=== PATIENT | male | born 1995 | race Caucasian/White ===

== ENCOUNTER 2018-03-27 00:36 | Emergency (ER) | payer SELFPAY ==
[~2018-03-27] VITALS: Ht 182.9 cm; Wt 90.9 kg
[~2018-03-27 00:36] MED LIST: EFFE150C PO; GABA300C5 PO; SERO200T PO
[2018-03-27 00:39] VITALS: BP 143/94; PULSE 95; RESP 18; O2SAT 97
[2018-03-27] MEDS ORDERED: SODIUM CHLOR 0.9% 1000 ML INJ 1,000 ML IV ONE (00:45)
[2018-03-27 01:14] LABS: AUTOMATED NEUTROPHIL # 3.6 TH/MM3 (1.8-7.7); BASOPHIL % 0.5 % (0.0-2.0); EOSINOPHIL # 0.2 TH/MM3 (0-0.4); EOSINOPHIL % 3.2 % (0.0-4.0); HEMOGLOBIN 15.4 GM/DL (13.0-17.0); LYMPHOCYTE # 2.3 TH/MM3 (1.0-4.8); MEAN CELL VOLUME 87.9 FL (80.0-100.0); MEAN CORPUSCULAR HEMOGLOBIN 30.8 PG (27.0-34.0); MEAN CORPUSCULAR HGB CONC 35.1 % (32.0-36.0); MEAN PLATELET VOLUME 8.8 FL (7.0-11.0); MONO % 9.1 % (0.0-8.0); MONOCYTE # 0.6 TH/MM3 (0-0.9); NEUT % 53.2 % (16.0-70.0); PLATELET COUNT 239 TH/MM3 (150-450); RED CELL DISTRIBUTION WIDTH 13.2 % (11.6-17.2); WHITE BLOOD COUNT 6.7 TH/MM3 (4.0-11.0)
[2018-03-27 01:30] LABS: ALBUMIN 4.3 GM/DL (3.4-5.0); AST (GOT) 32 U/L (15-37); BICARBONATE 32.3 MEQ/L (21.0-32.0); BLOOD UREA NITROGEN 9 MG/DL (7-18); CALCIUM 8.5 MG/DL (8.5-10.1); CHLORIDE 102 MEQ/L (98-107); CREATININE 1.36 MG/DL (0.60-1.30); GLOMERULAR FILTRATION RATE 64 ML/MIN (>89); GLUCOSE,RANDOM 98 MG/DL (74-106); SODIUM (NA) 142 MEQ/L (136-145)
[2018-03-27 01:33] LABS: ALKALINE PHOSPHATASE 63 U/L (45-117); ALT (GPT) 57 U/L (12-78); TOTAL PROTEIN 7.7 GM/DL (6.4-8.2)
[2018-03-27 01:53] LABS: BILIRUBIN, URINE NEG (NEG); BLOOD, URINE NEG (NEG); GLUCOSE,URINE NEG (NEG); HYALINE CAST, URINE 12 /lpf (RARE); KETONE, URINE TRACE mg/dL (NEG); NITRITE,URINE NEG (NEG); PH, URINE 6.5 (5.0-8.5); URINE COLOR YELLOW (YELLW/STRAW); URINE LEUKOCYTE ESTERASE NEG (NEG)
--- NOTE | 2018-03-27 01:57 | RADRPT ---
EXAM DATE: 03/27/2018 1:53 AM EDT AGE/SEX: 22 years / Male INDICATIONS: Chest pain. CLINICAL DATA: This is the patient's initial encounter. Patient reports that signs and symptoms have been present for 1 day and indicates a pain score of 3/10. MEDICAL/SURGICAL HISTORY: . Smoker. None. COMPARISON: No prior exams available for comparison. FINDINGS: The lungs are clear without infiltrate, nodule, or mass. There is no appreciable pleural effusion for technique. Heart and mediastinum are unremarkable. CONCLUSION: No acute cardiopulmonary disease. Electronically signed by: Cortes Reed MD 03/27/2018 1:55 AM EDT
[2018-03-27] MEDS ORDERED: NALO1SPR NASAL (02:12)
--- NOTE | 2018-03-27 02:14 | PD ---
HPI Chief Complaint: OD/ Ingestion Time Seen by Provider: 00:40 Travel History International Travel<30 days: No Contact w/Intl Traveler<30days: No Traveled to known affect area: No History of Present Illness HPI The patient is a 22 year old male who presents to the [facility] emergency department with a history of accidentally overdosing on heroin prior to arrival. The patient was found unresponsive by a friend. Fire rescue administered Narcan nasally, however the patient did not respond, ambulance services then placed IV access while the patient was bagged and the patient was given Narcan 0.4 mg IV. The patient had resolution of his respiratory depression and diminished GCS shortly thereafter. The patient reports having a long-standing history of opiate abuse. He was clean and sober for 18 months up until a week ago when he began to use crack, cocaine, alcohol, and opiates again. He used heroin for the first time in a long time again this evening. He denies any suicidal or homicidal ideation he does report having a history of anxiety and depression, however he is on medication for this at this time. The patient has multiple friends at the bedside. Some of the friends at the bedside are in Narcotics Anonymous with the patient. He denies having any known history of hepatitis or HIV. Otherwise on review of systems, the patient denies ingestion, neck pain, chest pain, shortness of breath, abdominal pain, vomiting, diarrhea, urinary symptoms, or neurologic symptoms. [facility] Past Medical History Narrative Medical The patient's past medical history is significant for polysubstance abuse, anxiety and depression. Diminished Hearing: No Tetanus Vaccination: Unknown Influenza Vaccination: Yes ?: Unknown Past Surgical History Surgical History: No Previous Surgery Social History Alcohol Use: Yes (Occasional use) Tobacco Use: Yes (1/2 ppd) Substance Use: Yes (herion, dilaudid, crack) Allergies-Medications (Allergen,Severity, Reaction): Coded Allergies: amoxicillin (Verified Allergy, Severe, 03/27/18) Reported Meds & Prescriptions Reported Meds & Active Scripts Active Reported Gabapentin 300 Mg Cap 300 Mg PO TID Seroquel (Quetiapine Fumarate) 200 Mg Tab 200 Mg PO DAILY Effexor XR 24 HR (Venlafaxine HCl) 150 Mg Cap 150 Mg PO DAILY Review of Systems Except as stated in HPI: all other systems reviewed are Neg General / Constitutional: No: Fever Eyes: No: Visual changes HENT: No: Headaches Cardiovascular: No: Chest Pain or Discomfort Respiratory: No: Shortness of Breath Gastrointestinal: No: Abdominal Pain Genitourinary: No: Dysuria Musculoskeletal: No: Pain Skin: No Rash Neurologic: Positive: Change in Mentation, No: Weakness Psychiatric: Positive: Substance Abuse, No: Depression, Suicidal Ideations Endocrine: No: Polydipsia Hematologic/Lymphatic: No: Easy Bruising Physical Exam Narrative General: The patient is a well-developed well-nourished male in no acute distress. Head and Neck exam: Head is normocephalic atraumatic. Eyes: EOMI, pupils are equal round and reactive to light. Nose: Midline septum with pink mucous membranes Mouth: Dentition unremarkable. Tacky mucus membranes. Posterior oropharynx is not erythematous. No tonsillar hypertrophy. Uvula midline. Airway patent. Neck: No palpable lymphadenopathy. No nuchal rigidity. No thyromegaly. Cardiovascular: Regular rate and rhythm without murmurs, gallops, or rubs. No pulse deficit to the extremities on simultaneous auscultation and palpation of his radial artery. Lungs: Clear to auscultation bilaterally. No wheezes, rhonchi, or rales. Abdomen: Soft, without tenderness to palpation in all 4 quadrants of the abdomen. No guarding, rebound, or rigidity. Normal bowel sounds are audible. No tenderness on palpation of McBurney's point. Extremities: No clubbing, cyanosis, or edema. 2+ pulses in all 4 extremities. No calf tenderness on palpation. Back: No costovertebral angle tenderness to palpation. Neurologic Exam: Grossly nonfocal. Skin Exam: No rash noted. Intact skin that is warm and dry. Data Data Last Documented VS Vital Signs Date Time Temp Pulse Resp B/P (MAP) Pulse Ox O2 Delivery O2 Flow Rate FiO2 03/27/18 00:46 94 Room Air 03/27/18 00:39 95 18 143/94 (110) Orders Orders Complete Blood Count With Diff (03/27/18 00:41) Comprehensive Metabolic Panel (03/27/18 00:41) Urinalysis - C+S If Indicated (03/27/18 00:41) Chest, Single Ap (03/27/18 00:41) Iv Access Insert/Monitor (03/27/18 00:41) Ecg Monitoring (03/27/18 00:41) Oximetry (03/27/18 00:41) Drug Screen, Random Urine (03/27/18 00:41) Alcohol (Ethanol) (03/27/18 00:41) Sodium Chlor 0.9% 1000 Ml Inj (Ns 1000 M (03/27/18 00:45) Labs Laboratory Tests Test 03/27/18 00:53 03/27/18 01:37 White Blood Count 6.7 TH/MM3 Red Blood Count 5.00 MIL/MM3 Hemoglobin 15.4 GM/DL Hematocrit 44.0 % Mean Corpuscular Volume 87.9 FL Mean Corpuscular Hemoglobin 30.8 PG Mean Corpuscular Hemoglobin Concent 35.1 % Red Cell Distribution Width 13.2 % Platelet Count 239 TH/MM3 Mean Platelet Volume 8.8 FL Neutrophils (%) (Auto) 53.2 % Lymphocytes (%) (Auto) 34.0 % Monocytes (%) (Auto) 9.1 % Eosinophils (%) (Auto) 3.2 % Basophils (%) (Auto) 0.5 % Neutrophils # (Auto) 3.6 TH/MM3 Lymphocytes # (Auto) 2.3 TH/MM3 Monocytes # (Auto) 0.6 TH/MM3 Eosinophils # (Auto) 0.2 TH/MM3 Basophils # (Auto) 0.0 TH/MM3 CBC Comment DIFF FINAL Differential Comment Blood Urea Nitrogen 9 MG/DL Creatinine 1.36 MG/DL Random Glucose 98 MG/DL Total Protein 7.7 GM/DL Albumin 4.3 GM/DL Calcium Level 8.5 MG/DL Alkaline Phosphatase 63 U/L Aspartate Amino Transf (AST/SGOT) 32 U/L Alanine Aminotransferase (ALT/SGPT) 57 U/L Total Bilirubin 1.0 MG/DL Sodium Level 142 MEQ/L Potassium Level 3.8 MEQ/L Chloride Level 102 MEQ/L Carbon Dioxide Level 32.3 MEQ/L Anion Gap 8 MEQ/L Estimat Glomerular Filtration Rate 64 ML/MIN Ethyl Alcohol Level LESS THAN 3 MG/DL Urine Color YELLOW Urine Turbidity CLEAR Urine pH 6.5 Urine Specific Mineral 1.014 Urine Protein NEG mg/dL Urine Glucose (UA) NEG mg/dL Urine Ketones TRACE mg/dL Urine Occult Blood NEG Urine Nitrite NEG Urine Bilirubin NEG Urine Urobilinogen LESS THAN 2.0 MG/DL Urine Leukocyte Esterase NEG Urine RBC LESS THAN 1 /hpf Urine WBC 1 /hpf Urine Hyaline Casts 12 /lpf Microscopic Urinalysis Comment CULT NOT INDICATED Urine Opiates Screen POS Urine Barbiturates Screen NEG Urine Amphetamines Screen NEG Urine Benzodiazepines Screen NEG Urine Cocaine Screen POS Urine Cannabinoids Screen NEG MDM Medical Decision Making Medical Screen Exam Complete: Yes Emergency Medical Condition: Yes Medical Record Reviewed: Yes Differential Diagnosis Accidental heroin overdose, versus intentional heroin polysubstance abuse with intoxication Narrative Course During the course of the patient's emergency department visit, the patient's history, examination, and differential diagnosis were reviewed with the patient. The patient was placed on a cardiac rn with oximetry and frequent blood pressure monitoring. The patient had IV access obtained and blood work sent for analysis. The patient was initially provided normal saline 1 L IV fluid bolus. The patient's laboratory studies were reviewed and remarkable for a CBC with a normal white count at 6.7, hemoglobin 15.4, platelets 239 with 9.1 monocytes, CMP is remarkable for CO2 of 32.3, creatinine 1.36, urinalysis shows trace ketones otherwise unremarkable. Urine drug screen is positive for opiates and cocaine. Alcohol level less than 3. Radiology studies were reviewed and remarkable for a chest x-ray that shows no acute cardiopulmonary disease. The patient will be observed in the emergency department for any recurrence of decreased respiratory rate or decreased level of consciousness as the Narcan wears off. If the patient continues to be awake and alert the patient will be discharged after 3 hours of observation. The patient is resting comfortably and feels better, is alert and in no distress. The patient's results and examination findings were discussed with the patient. The repeat examination is unremarkable and benign. The history, exam, diagnostic testing, and current condition do not suggest any significant pathology to warrant further testing, continued ED treatment, admission, or surgical evaluation at this point. The vital signs have been stable. The patient does not have uncontrollable pain, intractable vomiting, or other significant symptoms. The patient's condition is stable and appropriate for discharge. The patient will pursue further outpatient evaluation with a primary care physician or other designated or consulting physician as indicated in the discharge instructions. The patient is instructed to report back to the emergency department immediately for reexamination in the mean time if he/ she develops any new or worsening signs or symptoms. The patient expressed understanding and was agreeable with this plan. Referrals: Primary Care Physician 2 days Patient Instructions: General Instructions, Opioid Overdose (ED) Med/Other Pt SpecificInfo: Prescription(s) given Scripts Naloxone Nasal [place] (Narcan Nasal [place]) 4 Mg/Act [place] 4 MG NASAL ONCE Y for OPIOID OVERDOSE, #1 SPRAY 0 Refills Contents of 1 nasal spray as a single dose; may repeat every 2 to 3 minutes in alternating nostrils until medical assistance becomes available. Prov: Iza Rivera MD 03/27/18 Disposition: 01 DISCHARGE HOME Condition: Stable Iza Rivera MD March 27, 2018 02:13
== END 2018-03-27 05:18 | disposition home or self-care (01) ==
LOC: NEPE 00:36
DX: T40.1X1A Poisoning by heroin, accidental (unintentional), initial encounter (principal); F11.10 Opioid abuse, uncomplicated; F32.9 Major depressive disorder, single episode, unspecified; F41.9 Anxiety disorder, unspecified; F17.200 Nicotine dependence, unspecified, uncomplicated
CPT/HCPCS: 71045; 80053; 80307; 81001; 85025; 96360; 99284; J7030